=== PATIENT | male | born 1985 | race Caucasian/White ===

== ENCOUNTER 2016-06-14 21:15 | Emergency (ER) | payer SELFPAY ==
[~2016-06-14] VITALS: Ht 172.7 cm; Wt 76.7 kg
[~2016-06-14 21:15] MED LIST: IBUP-1050 PO
[2016-06-14 21:26] VITALS: TEMP 36.8; Ht 172.7 cm; Wt 76.7 kg
[2016-06-14] MEDS ORDERED: CYCL10TA6 PO (22:20)
--- NOTE | 2016-06-14 22:23 | EMERGENCY ROOM VISIT NOTE ---
ED Visit Note First contact with patient: 21:53 CHIEF COMPLAINT: "Jaw pops and cracks when opening closing". HISTORY OF PRESENT ILLNESS: This 31-year-old male patient presented to the emergency department via private vehicle with a progressive bilateral jaw ache for the past few months. The patient states that initially his yard would just pop or crack at the location of the TMJ, however now he notes increased pain that has progressively worsened. He notes the pain will radiate from the right TMJ into his face. He notes at rest the pain as a 5/10, and when he eats or talks the pain is significantly increased. He has been ingesting large amounts of Tylenol and ibuprofen with minimal relief. He also states that he fractured his right inferior orbit about 12 years ago. He denies any recent trauma to the area. He states that he has been taking 5 tablets of ibuprofen at a time 5 times daily. He also has been taking 1-2 Tylenol tablets at a time 2-3 times per day. He states he does not have a family doctor. REVIEW OF SYSTEMS: A 6 system review of systems was completed with positives and pertinent negatives listed in the HPI. ALLERGIES: No known allergies MEDICATIONS: As noted below PMH: None SOCIAL HISTORY: Patient lives at home with mother, admits to tobacco use, denies alcohol use. PHYSICAL EXAM: Vitals are noted on the nurse's note and reviewed by myself. Patient is afebrile, he is hypertensive at 184/108, he is not tachycardic and is saturating well on room air 99%. GENERAL -31-year-old male appearing his stated age who is in no acute distress. Communicates well with provider and answers questions appropriately. SKIN - Without rashes. No petechial rashes. HEAD - NC/AT. No evidence of trauma to the head. EYES - Sclera anicteric. Palpebral conjunctiva pink and moist with no injection noted. EARS - No deformities of external structures noted on gross examination bilaterally. No pain elicited with palpation of the tragus bilaterally. External auditory canals without discharge or otorrhea. Tympanic membranes pearly post without retraction or bulging. No fluid or purulent material visualized behind the TM. Handle of malleus, umbo, cone of light, pars tensa/ flaccid all easily visualized. NOSE - Midline and without cyanosis. No epistaxis or purulent drainage noted. MOUTH/OROPHARYNX - Without perioral cyanosis. Buccal mucosa pink and moist and without leukoplakia. Tongue midline with equal elevation of palate bilaterally. No tonsillar hypertrophy, erythema, or exudates noted. Poor dentition noted. There is tenderness to palpation overlying the right masseter muscle. There is clicking and popping of the right TMJ upon opening and closing the mouth. No evidence of Gustavo angina, cellulitis or infection. No evidence of meningitis or encephalitis. NECK - Neck with FROM. Supple to palpation. No lymphadenopathy noted. No nuchal rigidity. ED COURSE: Patient was seen and evaluated as above. After obtaining a thorough history and physical examination it was evident the patient was experiencing some TMJ dysfunction that is progressively worsened despite the patient subjectively stating he's been taking Tylenol and ibuprofen. Benefits versus risk was discussed of obtaining a CT scan of the TMJ region however the decision was made to not scan. I do believe this is reasonable and do not believe the benefit would outweigh the risk noted change treatment plan or management. The patient states that he has called around the region to try and identify people who may help treat TMJ. He is not been successful with this. I do believe it is reasonable to have the patient referred to an oral maxillofacial surgeon in the area that participates with jaw ailments. He will be referred. Because the patient has already tried ibuprofen and Tylenol with minimal relief, I do believe it is appropriate to have the patient try a longer acting NSAID such as Aleve or naproxen as well as Flexeril to help relieve the masseter muscles at night. He is provided with a short-term prescription for Flexeril as well as a home pack to take at night to help the left masseter muscle as there was noted to be tenderness upon palpation as well as to waste picker [id number] Aleve to help with the inflammation of the TMJ region. I did inform the patient that sometimes tricyclic antidepressants are off and prescribed for this however I did not comfortable doing this in the emergency department setting, and also informed him that there are other modalities in which may be tried and offered by the oral maxillofacial surgeon to help with the TMJ. At this time I do believe it is reasonable to also address the patient 's hypertension. He was noted to be 184/108 upon his entrance into the emergency department. He notes he does not have a family doctor and asks if this is a bad reading. I informed him that this is a concerning reading but he did deny chest pain and shortness of breath at this time. He states that at times while working he may get chest pain and I informed him that this is very concerning and discussed with him whether other workup at this time should be initiated. It was decided after speaking with him that when he is developing the chest pain he is to go to the emergency Department immediately for stat evaluation. I did try to have the case management assistant started the patient regarding CVA I am, however the patient was noted to live in [place]. He was informed by our case management assistant Ranjit, about enlisting services in the area to help him obtain medical care. I also informed the patient it is important that he follows up and obtained a family doctor to help with his high blood pressure. His blood pressure was reevaluated and noted to be lower but still not to a nonhypertensive range. Because he did not experience any chest pain or shortness of breath at this time I do believe discharge is reasonable with close follow-up. He certainly is to return with any chest pain, shortness of breath or worsening of symptoms. He did seem very happy with plan of care. I also informed him that he is to stop smoking as he is a very high risk for heart attack and stroke given his hypertensive state and smoking. He inquired about modalities to help stop smoking of which were discussed with him and he was also informed upon follow-up with the family doctor. The patient was educated upon management of today's findings, had questions prior to discharge, was educated upon worrisome symptoms which to return, and was discharged home in good condition. In the evaluation treatment this patient the following differential diagnoses were entertained: TMJ, lockjaw, dental infection, Gustavo angina, meningitis, encephalitis, hypertension, among others. Problem List Medical Problems: (1) No Known Active Medical Problems Status: Chronic Current/Historical Medications Scheduled Cyclobenzaprine Hcl (Flexeril), 10 MG PO HS Scheduled PRN Ibuprofen (Advil), 200-600 MG PO Q4H PRN for Pain Allergies Coded Allergies: No Known Allergies (Unverified , 06/14/16) Vital Signs Date Time Temp Pulse Resp B/P Pulse Ox O2 Delivery O2 Flow Rate FiO2 06/14/16 22:28 60 16 160/108 97 06/14/16 21:26 36.8 83 18 184/108 99 Room Air Medications Administered Medications (Trade) Dose Ordered Sig/Jae Route Start Time Stop Time Status Last Admin Dose Admin Cyclobenzaprine HCl (FLEXERIL 10MG Home Pack) 1 homepack UD STAT PO 06/14/16 22:24 06/14/16 22:25 DC 06/14/16 22:31 1 HOMEPACK Departure Information Impression Primary Impression: TMJ dysfunction Dispostion Home / Self-Care Condition GOOD Prescriptions Cyclobenzaprine Hcl (FLEXERIL) 10 Mg Tab 10 MG PO HS for 10 Days, #10 TAB Prov: Khoa Bee PA-C 06/14/16 Referrals No Doctor, Assigned (PCP) Dante Agosto D.D.S. Stein, Barry R., D.M.D. Patient Instructions My [facility] Additional Instructions You were seen in the emergency department for your jaw pain which is likely TMJ dysfunction. You have been prescribed Flexeril (cyclobenzaprine) 1 tabs orally, before bed. Do NOT exceed 30 mg (6 tabs) per day. Take your first dose at bedtime as it can make you drowsy. Always take all medications as prescribed. Please take naproxen, 500 mg twice daily for 10 days. Please do not take this with ibuprofen. For pain control, you can use the following [id number]-jefszhg medicines (if >12 yo): - Regular strength (325mg/tab) Tylenol (acetaminophen) 2 tabs every 4-6 hours as needed. Do not exceed 12 tablets in a 24 hour period. Avoid taking more than 4 grams (4000 mg) of Tylenol per day. This includes any other sources of acetaminophen you may take on a regular basis. - Regular strength (200 mg/tab) Advil (ibuprofen) 1-2 tabs every 4-6 hours as needed. Do not exceed a dose of 3200 mg per day. (DO NOT TAKE WITH NAPROXEN) Refrain from smoking cigarettes or using chewing tobacco until you have been evaluated by oral surgery Please call the surgeons listed above, they are oral maxillofacial surgeons. Please call him first thing Friday morning to schedule follow-up. (DR. AGOSTO) Return to the emergency department if you develop the following symptoms despite treatment course outlined above: fever, intractable pain, increased redness, swelling, or purulent discharge.
[2016-06-14] MEDS ORDERED: FLEXERIL HOME PACK 10 MG VIAL PO STA (22:24)
[2016-06-14 22:28] VITALS: BP 160/108; PULSE 60; O2SAT 97
== END 2016-06-14 22:42 | disposition home or self-care (01) ==
LOC: C.EDB 21:16 → C.EDD 22:42
DX: M26.621 Arthralgia of right temporomandibular joint (principal); F17.200 Nicotine dependence, unspecified, uncomplicated; Z87.81 Personal history of (healed) traumatic fracture